=== PATIENT | female | born 1930 | race Caucasian/White ===

== ENCOUNTER 2016-07-10 21:31 | Inpatient (IN) | payer MEDICARE, OTHER ==
--- NOTE | ~2016-07-10 | DS ---
Discharge Summary [facility] [address] [place]. [address] NAME: LIAM JONES : 28 STATUS : DIS IN PAT#: [id number] AGE: 85 ADM/REG DATE : 07/11/16 MR#: [id number] REPORT SERV DATE: 07/19/16 DICTATED BY: HIWOT LEE DATE: 07/18/16 REPORT STATUS : Draft TRANSCRIBED BY: MODL DATE: 07/18/16 ADMISSION DATE: 07/11/2016 DISCHARGE DATE: 07/18/2016 HISTORY OF PRESENT ILLNESS: The patient is an 85-year-old female with a history of hypertension, diabetes type 2, CVA, who was brought to the emergency room from her [facility] with a complaint of sedation, altered mental status, and shortness of breath. For further details, please refer to H and P dictated by Dr. Keller on 07/11/2016. HOSPITAL COURSE: Upon presentation to the hospital, the patient met sepsis criteria. Was also noted to have toxic metabolic encephalopathy as well as urinary tract infection. The patient was subsequently admitted on the Hospitalist Service and started on broad-spectrum antibiotics. Blood culture was obtained, which came back positive for Staph haemolyticus in two bottles, at which time, the patient's antibiotics were deescalated to Unasyn. The patient has responded very well to antibiotic therapy, today is day eight of IV antibiotics. The patient currently has returned to baseline with resolution of her encephalopathy and significant improvement in her UTI. She no longer meets sepsis criteria and she is hemodynamically stable. Also during her hospitalization, the patient was noted to gurgle and cough with p.o. intake. The patient was briefly placed n.p.o. and a swallow evaluation was done, which was positive for aspiration. Per recommendation, the patient was started on clear liquid diet and then eventually transition to pureed diet, which the patient is tolerating. Her other medical problems, which include hypertension, diabetes type 2, and atrial fibrillation were all managed while the patient was in the hospital. Given resolution of her symptoms and given the patient has returned to baseline and hemodynamic stability, the patient will be discharged back to fci today. Plan has been discussed with the patient and her daughter, who is agreeable with this plan. DISCHARGE DIAGNOSES: 1. Sepsis. 2. Toxic metabolic encephalopathy. 3. Urinary tract infection. 4. Atrial fibrillation. 5. Diabetes type 2. 6. Hypertension. 7. History of CVA. DISCHARGE MEDICATIONS: 1. Amlodipine 10 mg p.o. daily. 2. Brimonidine 0.2% ophthalmic solution 15 mL dose one drop in both eyes twice daily. 3. Carvedilol 12.5 mg p.o. twice a day with holding parameters of systolic blood pressure less than 10 and pulse of less than 60. 4. Vitamin B12 at 1000 mcg IM q.30 days. 5. Vitamin D. 6. Cholecalciferol 400 units p.o. daily. Discharge Summary [facility] [address] [place]. [address] NAME: LIAM JONES : 28 STATUS : DIS IN PAT#: [id number] AGE: 85 ADM/REG DATE : 07/11/16 MR#: [id number] REPORT SERV DATE: 07/19/16 DICTATED BY: HIWOT LEE DATE: 07/18/16 REPORT STATUS : Draft TRANSCRIBED BY: NATHAN DATE: 07/18/16 7. Flonase nasal spray two sprays nasally at bedtime. 8. Lumigan eyedrops 0.01% ophthalmic drop in both eyes. 9. Losartan 50 mg p.o. twice a day. 10.Omeprazole 40 mg p.o. daily. 11.Simvastatin 20 mg p.o. daily. 12.Lamisil 1% cream applied topically daily. 13.Systane one drop ophthalmic four times a day in both eyes. 14.Effexor XR 150 mg p.o. daily. 15.Trazodone 100 mg p.o. at bedtime. 16.Symbicort two puff inhalation twice a day. 17.Metformin 500 mg p.o. with breakfast and supper. 18.Depakote 250 mg p.o. twice a day. 19.Hydrochlorothiazide 25 mg p.o. daily. 20.Atrovent one spray nasally at bedtime. 21.MiraLAX powder one pack p.o. daily. 22.Timolol one drop ophthalmic solution in both eyes. 23.Tramadol 50 mg p.o. at bedtime. IMAGIN. CT brain without contrast, impression, stable moderate generalized atrophy compared to the 07/2009 study. Acute right maxillary sinusitis. 2. CT abdomen without contrast, impression, no evidence of bowel obstruction correlate, although the pelvis was not included. 3. Diverticulosis with no evidence of diverticulitis as image level. 4. Irregular low density within the pancreas, which may represent duct dilatation or cyst formation. For further details, please refer to study from 07/11/2016. DISPOSITION: The patient will be discharged back to her [facility]. ACTIVITY: As tolerated. DIET: Pureed diet. Greater than 40 minutes were spent counseling, coordinating discharge, medication reconciliation, and dictation of note. CRISTI/NATHAN Hiwot Lee MD / [id number] Discharge Summary [address] [address] NAME: LIAM JONES : 29 STATUS : DIS IN PAT#: [id number] AGE: 85 ADM/REG DATE : 07/11/16 MR#: [id number] REPORT SERV DATE: 07/19/16 DICTATED BY: HIWOT LEE DATE: 07/18/16 REPORT STATUS : Draft TRANSCRIBED BY: NATHAN DATE: 07/18/16 CC: Hiwot Lee MD
--- NOTE | ~2016-07-10 | HP ---
History And Physical [facility] [address] [facility] [place]. [address] NAME: LIAM JONES : 28 STATUS : ADM IN PAT#: [id number] AGE: 85 ADM/REG DATE : 07/11/16 MR#: [id number] REPORT SERV DATE: 07/11/16 DICTATED BY: RAUL KHAN DATE: 07/11/16 REPORT STATUS : Draft TRANSCRIBED BY: MODL DATE: 07/11/16 DATE OF ADMISSION: 07/10/2016 POINT OF ENTRY: [facility] Emergency Department Primary care physician is Dr. Li at [facility]. CHIEF COMPLAINT: Sedation, lethargy, altered mental status, shortness of breath, and hypoxemia. HISTORY OF PRESENT ILLNESS: Ms Jones is an 85-year-old female with a history of hypertension, hyperlipidemia, kqq-dbvlfiz-tgarhmuwz diabetes mellitus type 2 as well as a prior history of cerebrovascular accident who was brought to the emergency room today by EMS for multiple complaints including not eating for the last few days, sedation, lethargy, shortness of breath, and hypoxemia. History is obtained from the patient's daughter who is at bedside. The family states for the past few months, they have noted a steady kind of decline in her cognitive function and inabilities and with occasional troubles with dysarthria in getting her words out. For the past few days, they have become concerned, as have medical staff at [facility] that she has stopped eating. She has become more confused and now sedated and lethargic. Is having intermittent episodes of nausea and vomiting and has been found clutching her lower abdomen. Per EMS report, staff at [facility] was also concerned that she was visibly short of breath and had low oxygen levels of unknown detail. Initial evaluation in the emergency department notable for temperature 98.1 degrees Fahrenheit, pulse is 111. Initial labs notable for a white count of 13,600. Potassium of 2.7. Urinalysis was positive for urinary tract infection. ABG was unremarkable. Chest x- ray was of poor technique. CT on the brain was negative for any acute issues. It was felt that the patient's presenting symptoms were likely due to UTI as well as dehydration and encephalopathy. She was subsequently admitted to the Hospital Service for further evaluation and management. Again review of systems unable to be obtained secondary to the patient's altered mental status. According to her daughter, she has not eaten for the past two days and has had nausea, vomiting, and lower quadrant abdominal pain as well as worsening sedation and lethargy. COMPREHENSIVE REVIEW OF SYSTEMS: Otherwise, negative unless listed in history of present illness. PREVIOUS MEDICAL HISTORY: 1. Hypertension. 2. Hyperlipidemia. 3. Bzz-jtuqhut-qqhzpuabo diabetes mellitus type 2. 4. History of recurrent urinary tract infection. History And Physical [address] [address] NAME: LIAM JONES : 28 STATUS : ADM IN PAT#: [id number] AGE: 85 ADM/REG DATE : 07/11/16 MR#: [id number] REPORT SERV DATE: 07/11/16 DICTATED BY: RAUL KHAN DATE: 07/11/16 REPORT STATUS : Draft TRANSCRIBED BY: NATHAN DATE: 07/11/16 5. Osteoarthritis. 6. Anxiety. 7. Depression. 8. Glaucoma. 9. History of recurrent falls. 10.History of recurrent hyponatremia. 11.History of prior cerebrovascular accident. 12.Obstructive sleep apnea, noncompliant with CPAP therapy. SURGICAL HISTORY: 1. Cataracts. 2. Bilateral shoulder. 3. Bilateral total knee. 4. Abdominal hysterectomy. ALLERGIES: CODONE AND EFFEXOR. HOME MEDICATIONS: Pending at the time of dictation. SOCIAL HISTORY: She is a former smoker, as well as alcoholic. Family currently denies either. Denies illicits. She has now been a long-term resident of [facility] for the past two years. FAMILY MEDICAL HISTORY: Unable to obtain secondary to the patient's altered mental status. LABS AND IMAGIN. White count 13.6, hemoglobin 11.3, hematocrit 35.3, platelet count is 394. INR 1.2. 2. Sodium is 142, potassium 2.7, chloride 97, carbon dioxide 37, BUN 23, creatinine 0.56, glucose is 190, calcium 9.1, protein 7.4, albumin is 1.8. Bilirubin is 0.3, ALT is 12, AST 17, alkaline phosphatase is 88. 3. Troponin less than 0.02. 4. Lactic acid 1.6. 5. Procalcitonin 0.21. 6. Urinalysis; spec gravity is 1.026, hazy with trace leukocyte esterase, positive nitrites, 22 white blood cells per high-powered field with 8 red blood cells. 7. ABG; pH is 7.54, pCO2 of 38, pO2 is 61, bicarbonate is 32, saturating 94% on 3 L of nasal cannula. 8. Chest x-ray per my review. She is rotated to the right with poor inspiration as well as poor penetration. I do not appreciate any gross infiltrate or consolidation. However, it is limited. 9. CT of the brain showed limited by the patient positioning. It shows atrophy and chronic ischemic changes. No acute intracranial abnormality. 10.EKG per my review shows sinus tachycardia with PVCs as well as some diffuse T-wave flattening with no evidence of any acute ischemia or infarction. PHYSICAL EXAMINATION: VITAL SIGNS: Temperature is again 99.1 degrees Fahrenheit, pulse is 111, respirations 18, History And Physical [address] [address] NAME: LIAM JONES : 29 STATUS : ADM IN [facility]#: [id number] AGE: 85 ADM/REG DATE : 07/11/16 MR#: [id number] REPORT SERV DATE: 07/11/16 DICTATED BY: RAUL KHAN DATE: 07/11/16 REPORT STATUS : Draft TRANSCRIBED BY: NATHAN DATE: 07/11/16 saturating 92% on 3 L by nasal cannula. On recheck, blood pressure is now 177/114, pulse is in the 110s teens to 120, saturating 90%. GENERAL: The patient is awake, alert, in no acute distress. Resting comfortably in bed. She is a chronically ill-appearing elderly female who is currently sedated and lethargic and is minimally responsive to my questions or examination. Family is at bedside. HEENT: Atraumatic and normocephalic. Very dry mucous membranes. Pupils, right pupil is chronically dilated, left pupil is equal and round and reactive. NECK: No JV distention. No carotid bruits. CARDIAC: Irregularly irregular rate and rhythm. No murmurs, rubs, or gallops. Normal S1 and S2. LUNGS: Difficult to assess as the patient was not cooperative with inspiration. I do not appreciate any areas of rhonchi, wheezes, or crackles. ABDOMEN: Mildly tender to palpation in bilateral lower quadrant. No rebound or guarding. EXTREMITIES: Warm and perfused. No cyanosis, clubbing, or edema. SKIN: Warm and dry. PSYCH: Sedated and lethargic. NEURO: Sedated and lethargic, not able to cooperate with neuro exam. She is moaning and groaning but speech was unable to be assessed nor was gait. ASSESSMENT: Ms Cerrato 85-year-old female, who appears to have some chronic cognitive and physical decline over the past few months. She is now brought to emergency room today with new reports of sedation, lethargy, not eating, nausea, vomiting, as well as hypoxemia, shortness of breath, found to have evidence of sepsis as well as urinary tract infection. PROBLEM LIST: 1. Acute pyelonephritis. 2. Sepsis. 3. Toxic metabolic encephalopathy. 4. Hypokalemia. 5. Hypoxemia. 6. Severe protein calorie malnutrition. 7. Hypertension. PLAN: 1. Acute pyelonephritis. The patient meets criteria with evidence of systemic toxicity as well as elevated white count. We will place the patient on IV cefepime. Follow up urine culture. 2. Sepsis. She meets criteria with tachycardia and white count. Lactic acid within normal limits. Procalcitonin was negative. Follow up urine and blood cultures. Continue IV fluids and antibiotics. 3. Hypokalemia. Aggressive repletion. She received 20 mEq here in the ER. We will order another 40 to be given. I will place the patient on potassium containing fluids as well as electrolyte repletion protocol. 4. Toxic metabolic encephalopathy. I suspect that the patient's sedation, lethargy is primarily due to her underlying sepsis and urinary tract infection as arterial blood gas was unremarkable except for some hypoxemia. CT scan was also negative for any acute issues. We will check thyroid function studies, B12, urine drug screen as well History And Physical [address] [address] NAME: LIAM JONES YAA : 28 STATUS : ADM IN [facility]#: [id number] AGE: 85 ADM/REG DATE : 07/11/16 MR#: [id number] REPORT SERV DATE: 07/11/16 DICTATED BY: RAUL KHAN DATE: 07/11/16 REPORT STATUS : Draft TRANSCRIBED BY: NATHAN DATE: 07/11/16 as ammonia level, and hold sedating medications. 5. Hypoxemia. Unclear etiology at this time as my exam and chest x-ray are both limited by lack of the patient cooperation. We will order a repeat chest x-ray in the morning to assess whether or not the patient has any underlying pneumonia that may be contributing to her hypoxemia. Place her on p.r.n. DuoNeb for which she will cooperate. 6. Severe protein calorie malnutrition. We will ask Nutrition to see the patient in the morning. 7. Deep venous thrombosis prophylaxis. Lovenox subcu. 8. Code status. Per extensive discussion with family, it appears that the patient would not want to be intubated or undergo CPR, however, they still would like remaining efforts to be attempted at this time. As such, we will put in limited code orders. SHIRIN/NATHAN Raul Khan MD / [id number]
[~2016-07-10 21:31] MED LIST: AMB10 PO; B121000P IM; BALACET 325 PO; BETIMOL0.25 % OP; BRIMONIDINE0.2 % OPH; BUSPAR10 PO; COMBIGAN0.2 MG/0.5 OP; CYANO1000T PO; DITRO5 PO; EFFEX75 PO; EFFEXOR XR150 MG PO; FLEX PO; FLONASE NAS; GLUCPH PO; KLONO1 PO; LOP25 PO; LORCET PO; LUMIGAN OPH; MYCOSCROI TOP; NORV10 PO; NOVOLOG SC; PRILOSEC40 MG PO; PRIN20 PO; REM15 PO; REST15 PO; TIMOLOL GEL0.5 % OP; TYLENOL ARTH650 MG PO; ULTRAM50 PO; VOLTAREN1 % TOP; ZESTORETIC PO; ZOCOR40 PO
[2016-07-10 22:13] LABS: CARBOXYHEMOGLOBIN 1.5 % (0-3); HCO3 (ACTUAL BICARBONATE) 32.1 MEQ/L (23-27); INSTRUMENT SERIAL # 8087; METHEMOGLOBIN 0.3 % (0-3); O2 CONTENT 15.6 VOL% (18-24); PCO2 (CO2 TENSION) 38 MMHG (35-45); PO2 (O2 TENSION) 67 MMHG (79-93); SAMPLE Arterial; pH 7.54 (7.37-7.43)
[2016-07-10 22:29] LABS: BASOPHILS 0.2 %; BASOPHILS ABSOLUTE 0.03 10/3/uL (0.0-0.16); EOSINOPHILS 0 %; ER CBC TAT 0 Hrs 08 Mins; HEMATOCRIT 35.3 % (36.0-48.0); HEMOGLOBIN 11.3 g/dL (12.0-16.0); IMMATURE GRANULOCYTES 4.5 %; IMMATURE GRANULOCYTES ABSOLUTE 0.61 10/3/uL (0.0-0.11); LYMPHOCYTES 9.7 %; LYMPHOCYTES ABSOLUTE 1.32 10/3/uL (0.67-4.30); MANUAL DIFF NO %; MEAN CORPUSCULAR HEMOGLOB 27.1 pg (26.0-34.0); MEAN CORPUSCULAR VOLUME 84.7 fL (80-100); MEAN PLATELET VOLUME 9.5 fL (9.2-13.0); MONOCYTES 7.8 %; MONOCYTES ABSOLUTE 1.06 10/3/uL (0.21-1.20); NEUTROPHILS 77.8 %; PLATELET COUNT 394 10/3/uL (150-400); RBC DISTRIBUTION WIDTH 16.2 % (12.0-16.0); RED CELL COUNT 4.17 10/6/uL (4.0-5.6); WHITE BLOOD CELLS 13.6 10/3/uL (4.5-10.5)
[2016-07-10 22:36] LABS: INTERNATIONAL NORMAL RATI 1.2 UNITS (-); PARTIAL THROMBO TIME 33.7 SEC (22.5-37.2); PROTIME (NOT ORD) 14.6 SEC (12.0-14.5)
[2016-07-10 22:47] LABS: CALCIUM, SERUM 9.1 MG/DL (8.5-10.4); CHLORIDE, SERUM 97 MMOL/L (96-112); CREATININE 0.56 MG/DL (0.55-1.02); GFR AFRICAN AMERICAN 98 ML/MIN (>=60); GFR NON AFRICAN AMERICAN 84 ML/MIN (>=60); SGOT(AST) 17 U/L (5-40); SGPT(ALT) 12 U/L (5-65); TOTAL BILIRUBIN 0.3 MG/DL (0-1.2); TOTAL PROTEIN 7.4 G/DL (6.0-8.5); TROPONIN I <0.02 NG/ML (<0.05)
[2016-07-10 22:48] LABS: A/G RATIO 0.3 (0.7-1.9); ALBUMIN 1.8 G/DL (3.5-5.0); ALKALINE PHOSPHATASE 88 U/L (45-117); BAND NEUTROPHILS 24 %; BUN (BLOOD UREA NITROGEN) 23 MG/DL (6-23); CO2 (CARBON DIOXIDE) 37 MMOL/L (24-34); ER DIFF TAT 0 Hrs 27 Mins; GLOBULIN 5.6 G/DL (2.5-4.1); GLUCOSE, SERUM 190 MG/DL (60-99); IMMATURE GRANS ABSOLUTE (CALC) 0.27 10/3/uL (0.0-0.11); LYMPHOCYTES 7 %; LYMPHOCYTES ABSOLUTE (CALC) 0.95 10/3/uL (0.67-4.30); METAMYELOCYTES 2 %; MONOCYTES 3 %; MONOCYTES ABSOLUTE (CALC) 0.41 10/3/uL (0.21-1.20); NEUTROPHILS ABSOLUTE (CALC) 11.97 10/3/uL (2.02-8.40); PLATELET ESTIMATE ADQ (ADEQUATE); POTASSIUM, SERUM 2.7 MMOL/L (3.5-5.3); SEGMENTED NEUTROPHIL (0) 64 %; SODIUM, SERUM 142 MMOL/L (135-148); TOTAL NUCLEATED CELLS 100
[2016-07-10 22:48] LABS: ASCORBIC ACID (UR NOT ORDER) NEG (NEG); BILIRUBIN, URINE NEGATIVE (NEG); ER URINALYSIS TAT 0 Hrs 09 Mins; KETONE, URINE 20 MG/DL (NEG); LEUKOCYTE ESTERASE(NOT OR TRACE (NEG); NITRITE (URINE) POS (NEG); WBC (NOT ORDERED) (RFLEX) 22 (0-5)
[2016-07-10 23:35] LABS: LACTATE 1.6 MMOL/L (0.3-2.4)
[2016-07-11 00:29] LABS: PROCALCITONIN 0.21 ng/mL (<0.5)
[2016-07-11] MEDS ORDERED: NORV10 PO (02:33)
[2016-07-11] MEDS ORDERED: BRIMONIDINE0.2 % OPH (02:34)
[2016-07-11] MEDS ORDERED: COREG3 PO (02:34)
[2016-07-11] MEDS ORDERED: B121000P IM (02:35)
[2016-07-11] MEDS ORDERED: DEPAKOTE 125 M125 MG PO (02:36)
[2016-07-11] MEDS ORDERED: FLONASE NAS (02:37)
[2016-07-11] MEDS ORDERED: HYDROCHLOROT25 MG PO (02:37)
[2016-07-11] MEDS ORDERED: ATRONASAL6 NAS (02:38)
[2016-07-11] MEDS ORDERED: COZ50 PO (02:39)
[2016-07-11] MEDS ORDERED: LUMIGAN2.5 ML OPH (02:40)
[2016-07-11] MEDS ORDERED: GLUCPH PO (02:41)
[2016-07-11] MEDS ORDERED: PRILO PO (02:42)
[2016-07-11] MEDS ORDERED: MIRALAX POWDER1 PKT PO (02:43)
[2016-07-11] MEDS ORDERED: ZOCOR20 PO ×2 (02:44)
[2016-07-11] MEDS ORDERED: SYMBICORT 80/4.1 INH INH (02:45)
[2016-07-11] MEDS ORDERED: SYSTAN1 OPH ×2 (02:46→02:47)
[2016-07-11] MEDS ORDERED: LAMIS15 TOP (02:48)
[2016-07-11] MEDS ORDERED: TIMOLOL GEL0.5 % OPH (02:49)
[2016-07-11] MEDS ORDERED: ULTRAM50 PO (02:49)
[2016-07-11] MEDS ORDERED: EFFEXOR XR150 MG PO (02:50)
[2016-07-11] MEDS ORDERED: TRAZ100 PO (02:50)
[2016-07-11] MEDS ORDERED: VITAMIN D400 UNI1 PO (02:51)
[2016-07-11] MEDS ORDERED: BISR PR (02:51)
[2016-07-11] MEDS ORDERED: DUONEB INH (02:52)
[2016-07-11] MEDS ORDERED: MOMUD (02:53)
[2016-07-11] MEDS ORDERED: ROBITUSS23 PO (02:53)
[2016-07-11] MEDS ORDERED: SILTUSSIN100 MG/5 M PO (02:54)
[2016-07-11] MEDS ORDERED: SYSTANE OPH (02:57)
[2016-07-11] MEDS ORDERED: HYZAAR 50/12.51 TAB PO (03:00)
[2016-07-11 06:29] LABS: FREE T4 1.6 NG/DL (0.76-1.46)
[2016-07-11 06:35] LABS: FOLATE 15.2 NG/ML (>5.2); ULTRASENSITIVE TSH 0.759 MCIU/ML (0.358-3.740)
[2016-07-11 08:07] LABS: AMPHETAMINES (NOT ORD) NEG (NEG); BARBITURATES (NOT ORDERED NEG (NEG); BENZODIAZEPINES (NOT ORD) NEG (NEG); CANNABINOIDS (THC) NEG (NEG); COCAINE (NOT ORDERED) NEG (NEG); OPIATES NEG (NEG); PHENCYCLIDINE(PCP) NEG (NEG); TRICYCLICS NEG (NEG)
[2016-07-11 13:14] LABS: HEMOGLOBIN 9.9 g/dL (12.0-16.0); MEAN CORPUS HGB CONC 31.7 g/dL (32.0-36.0); MEAN CORPUSCULAR HEMOGLOB 27.1 pg (26.0-34.0); MEAN CORPUSCULAR VOLUME 85.5 fL (80-100); MEAN PLATELET VOLUME 9.1 fL (9.2-13.0); PLATELET COUNT 354 10/3/uL (150-400); RBC DISTRIBUTION WIDTH 16.4 % (12.0-16.0); RED CELL COUNT 3.65 10/6/uL (4.0-5.6); WHITE BLOOD CELLS 10.1 10/3/uL (4.5-10.5)
[2016-07-11 13:15] LABS: HEMATOCRIT 31.2 % (36.0-48.0); MANUAL DIFF YES %
[2016-07-11 13:36] LABS: BAND NEUTROPHILS 5 %; LYMPHOCYTES 12 %; LYMPHOCYTES ABSOLUTE (CALC) 1.21 10/3/uL (0.67-4.30); METAMYELOCYTES 3 %; MONOCYTES 5 %; MONOCYTES ABSOLUTE (CALC) 0.51 10/3/uL (0.21-1.20); NEUTROPHILS ABSOLUTE (CALC) 8.08 10/3/uL (2.02-8.40); PLATELET ESTIMATE ADQ (ADEQUATE); SEGMENTED NEUTROPHIL (0) 75 %; TOTAL NUCLEATED CELLS 100; TOXIC GRANULATION 1+; VACUOLATED NEUTROPHILES OCC
[2016-07-11 13:37] LABS: POLYCHROMASIA 1+ (2-5/OIF) (0-1/OIF)
[2016-07-12 06:40] LABS: HEMATOCRIT 33.4 % (36.0-48.0); HEMOGLOBIN 10.7 g/dL (12.0-16.0); MEAN CORPUSCULAR HEMOGLOB 27.4 pg (26.0-34.0); MEAN CORPUSCULAR VOLUME 85.6 fL (80-100); MEAN PLATELET VOLUME 8.9 fL (9.2-13.0); PLATELET COUNT 371 10/3/uL (150-400); RBC DISTRIBUTION WIDTH 16.5 % (12.0-16.0); WHITE BLOOD CELLS 12.9 10/3/uL (4.5-10.5)
[2016-07-12 06:43] LABS: MANUAL DIFF YES %
[2016-07-12 07:03] LABS: BUN (BLOOD UREA NITROGEN) 11 MG/DL (6-23); CALCIUM, SERUM 8.7 MG/DL (8.5-10.4); CHLORIDE, SERUM 104 MMOL/L (96-112); CO2 (CARBON DIOXIDE) 27 MMOL/L (24-34); CREATININE 0.43 MG/DL (0.55-1.02); GFR AFRICAN AMERICAN 107 ML/MIN (>=60); GFR NON AFRICAN AMERICAN 92 ML/MIN (>=60); GLUCOSE, SERUM 188 MG/DL (60-99); PHOSPHORUS, SERUM 1.5 MG/DL (2.5-4.5); POTASSIUM, SERUM 3.5 MMOL/L (3.5-5.3); SODIUM, SERUM 140 MMOL/L (135-148)
[2016-07-12 07:06] LABS: BAND NEUTROPHILS 11 %; IMMATURE GRANS ABSOLUTE (CALC) 0.65 10/3/uL (0.0-0.11); LYMPHOCYTES 8 %; LYMPHOCYTES ABSOLUTE (CALC) 1.03 10/3/uL (0.67-4.30); METAMYELOCYTES 3 %; MONOCYTES 4 %; MONOCYTES ABSOLUTE (CALC) 0.52 10/3/uL (0.21-1.20); MYELOCYTES 2 %; NEUTROPHILS ABSOLUTE (CALC) 10.71 10/3/uL (2.02-8.40); NUCLEATED RED BLOOD CELLS 1 /100WBC (0); PLATELET ESTIMATE ADQ (ADEQUATE); SEGMENTED NEUTROPHIL (0) 72 %; TOTAL NUCLEATED CELLS 100
[2016-07-12 07:07] LABS: TOXIC GRANULATION 1+
[2016-07-12] MEDS ORDERED: NORV10 PO (12:48)
[2016-07-12] MEDS ORDERED: DEPASPRINK PO (12:49)
[2016-07-12] MEDS ORDERED: COREG3 PO (12:49)
[2016-07-12] MEDS ORDERED: B121000P IM (12:49)
[2016-07-12] MEDS ORDERED: BRIMONIDINE0.2 % OPH (12:49)
[2016-07-12] MEDS ORDERED: COZ50 PO (12:50)
[2016-07-12] MEDS ORDERED: FLONASE NAS (12:50)
[2016-07-12] MEDS ORDERED: HYDROCHLOROT25 MG PO (12:50)
[2016-07-12] MEDS ORDERED: ATRONASAL6 NAS (12:50)
[2016-07-12] MEDS ORDERED: LUMIGAN2.5 ML OPH (12:51)
[2016-07-12] MEDS ORDERED: GLUCPH PO (12:51)
[2016-07-12] MEDS ORDERED: PRILOSEC40 MG PO (12:51)
[2016-07-12] MEDS ORDERED: ZOCOR20 PO (12:52)
[2016-07-12] MEDS ORDERED: MIRALAX POWDER1 PKT PO (12:52)
[2016-07-12] MEDS ORDERED: SYMBICORT 80/4.1 INH INH (12:52)
[2016-07-12] MEDS ORDERED: SYSTANE OPH (12:53)
[2016-07-12] MEDS ORDERED: SYSTAN1 OPH (12:53)
[2016-07-12] MEDS ORDERED: LAMIS15 TOP (12:54)
[2016-07-12] MEDS ORDERED: VITAMIN D400 UNI1 PO (12:55)
[2016-07-12] MEDS ORDERED: TRAZ100 PO (12:55)
[2016-07-12] MEDS ORDERED: ULTRAM50 PO (12:55)
[2016-07-12] MEDS ORDERED: EFFEXOR XR150 MG PO (12:55)
[2016-07-12] MEDS ORDERED: TIMOLOL MAL0.5 % OPH (12:55)
[2016-07-12] MEDS ORDERED: ZOFRAN4 PO (12:56)
[2016-07-12] MEDS ORDERED: DUONEB INH (12:56)
[2016-07-12] MEDS ORDERED: SILTUSSIN100 MG/5 M PO (12:57)
[2016-07-12 21:02] LABS: PHOSPHORUS, SERUM 3.3 MG/DL (2.5-4.5); POTASSIUM, SERUM 3.9 MMOL/L (3.5-5.3)
[2016-07-13 06:20] LABS: HEMOGLOBIN 11.1 g/dL (12.0-16.0); MANUAL DIFF YES %; MEAN CORPUS HGB CONC 31.7 g/dL (32.0-36.0); MEAN CORPUSCULAR HEMOGLOB 27.2 pg (26.0-34.0); MEAN CORPUSCULAR VOLUME 85.8 fL (80-100); PLATELET COUNT 418 10/3/uL (150-400); RBC DISTRIBUTION WIDTH 16.7 % (12.0-16.0); RED CELL COUNT 4.08 10/6/uL (4.0-5.6); WHITE BLOOD CELLS 11.4 10/3/uL (4.5-10.5)
[2016-07-13 06:34] LABS: A/G RATIO 0.4 (0.7-1.9); ALBUMIN 1.8 G/DL (3.5-5.0); BUN (BLOOD UREA NITROGEN) 11 MG/DL (6-23); CALCIUM, SERUM 8.2 MG/DL (8.5-10.4); CHLORIDE, SERUM 104 MMOL/L (96-112); CREATININE 0.41 MG/DL (0.55-1.02); GFR AFRICAN AMERICAN 108 ML/MIN (>=60); GFR NON AFRICAN AMERICAN 94 ML/MIN (>=60); GLOBULIN 4.8 G/DL (2.5-4.1); GLUCOSE, SERUM 168 MG/DL (60-99); POTASSIUM, SERUM 3.9 MMOL/L (3.5-5.3); SGOT(AST) 14 U/L (5-40); SGPT(ALT) 12 U/L (5-65); SODIUM, SERUM 138 MMOL/L (135-148); TOTAL BILIRUBIN 0.4 MG/DL (0-1.2); TOTAL PROTEIN 6.6 G/DL (6.0-8.5)
[2016-07-13 06:36] LABS: ALKALINE PHOSPHATASE 66 U/L (45-117); CO2 (CARBON DIOXIDE) 22 MMOL/L (24-34)
[2016-07-13 06:47] LABS: BAND NEUTROPHILS 7 %; IMMATURE GRANS ABSOLUTE (CALC) 0.34 10/3/uL (0.0-0.11); LYMPHOCYTES 13 %; LYMPHOCYTES ABSOLUTE (CALC) 1.48 10/3/uL (0.67-4.30); METAMYELOCYTES 3 %; MONOCYTES 3 %; MONOCYTES ABSOLUTE (CALC) 0.34 10/3/uL (0.21-1.20); NEUTROPHILS ABSOLUTE (CALC) 9.23 10/3/uL (2.02-8.40); PLATELET ESTIMATE SLT INC (ADEQUATE); SEGMENTED NEUTROPHIL (0) 74 %; TOTAL NUCLEATED CELLS 100
[2016-07-14 06:02] LABS: A/G RATIO 0.4 (0.7-1.9); ALKALINE PHOSPHATASE 72 U/L (45-117); BUN (BLOOD UREA NITROGEN) 11 MG/DL (6-23); CALCIUM, SERUM 8.1 MG/DL (8.5-10.4); CHLORIDE, SERUM 101 MMOL/L (96-112); CO2 (CARBON DIOXIDE) 19 MMOL/L (24-34); CREATININE 0.43 MG/DL (0.55-1.02); GFR AFRICAN AMERICAN 107 ML/MIN (>=60); GFR NON AFRICAN AMERICAN 92 ML/MIN (>=60); GLOBULIN 4.6 G/DL (2.5-4.1); GLUCOSE, SERUM 167 MG/DL (60-99); SGOT(AST) 13 U/L (5-40); SGPT(ALT) 10 U/L (5-65); SODIUM, SERUM 134 MMOL/L (135-148); TOTAL BILIRUBIN 0.4 MG/DL (0-1.2); TOTAL PROTEIN 6.6 G/DL (6.0-8.5)
[2016-07-14 06:50] LABS: HEMATOCRIT 36.5 % (36.0-48.0); HEMOGLOBIN 11.9 g/dL (12.0-16.0); MEAN CORPUS HGB CONC 32.6 g/dL (32.0-36.0); MEAN CORPUSCULAR HEMOGLOB 27.4 pg (26.0-34.0); MEAN CORPUSCULAR VOLUME 83.9 fL (80-100); MEAN PLATELET VOLUME 9.2 fL (9.2-13.0); NUCLEATED RED BLOOD CELLS 0.4 /100WBC (0-0); PLATELET COUNT 502 10/3/uL (150-400); RBC DISTRIBUTION WIDTH 16.4 % (12.0-16.0); RED CELL COUNT 4.35 10/6/uL (4.0-5.6); WHITE BLOOD CELLS 13.6 10/3/uL (4.5-10.5)
[2016-07-14 06:55] LABS: MANUAL DIFF YES %
[2016-07-14 08:37] LABS: BAND NEUTROPHILS 9 %; EOSINOPHILS 2 %; EOSINOPHILS ABSOLUTE (CALC) 0.27 10/3/uL (0.0-0.53); IMMATURE GRANS ABSOLUTE (CALC) 0.54 10/3/uL (0.0-0.11); LYMPHOCYTES 9 %; LYMPHOCYTES ABSOLUTE (CALC) 1.22 10/3/uL (0.67-4.30); METAMYELOCYTES 3 %; MONOCYTES 6 %; MONOCYTES ABSOLUTE (CALC) 0.82 10/3/uL (0.21-1.20); MYELOCYTES 1 %; NEUTROPHILS ABSOLUTE (CALC) 10.74 10/3/uL (2.02-8.40); PLATELET ESTIMATE ADQ (ADEQUATE); RBC MORPHOLOGY NORM (NORMAL); SEGMENTED NEUTROPHIL (0) 70 %; TOTAL NUCLEATED CELLS 100
[2016-07-15 05:07] LABS: HEMATOCRIT 34.7 % (36.0-48.0); HEMOGLOBIN 11.3 g/dL (12.0-16.0); MEAN CORPUS HGB CONC 32.6 g/dL (32.0-36.0); MEAN CORPUSCULAR HEMOGLOB 27.3 pg (26.0-34.0); MEAN CORPUSCULAR VOLUME 83.8 fL (80-100); MEAN PLATELET VOLUME 8.7 fL (9.2-13.0); PLATELET COUNT 506 10/3/uL (150-400); RBC DISTRIBUTION WIDTH 16.3 % (12.0-16.0); RED CELL COUNT 4.14 10/6/uL (4.0-5.6); WHITE BLOOD CELLS 13.1 10/3/uL (4.5-10.5)
[2016-07-15 05:19] LABS: MANUAL DIFF YES %
[2016-07-15 05:23] LABS: A/G RATIO 0.4 (0.7-1.9); ALBUMIN 1.9 G/DL (3.5-5.0); ALKALINE PHOSPHATASE 69 U/L (45-117); BUN (BLOOD UREA NITROGEN) 8 MG/DL (6-23); CALCIUM, SERUM 8.2 MG/DL (8.5-10.4); CHLORIDE, SERUM 101 MMOL/L (96-112); CREATININE 0.46 MG/DL (0.55-1.02); GFR AFRICAN AMERICAN 104 ML/MIN (>=60); GFR NON AFRICAN AMERICAN 90 ML/MIN (>=60); GLUCOSE, SERUM 154 MG/DL (60-99); SGOT(AST) 12 U/L (5-40); SGPT(ALT) 9 U/L (5-65); SODIUM, SERUM 136 MMOL/L (135-148); TOTAL BILIRUBIN 0.3 MG/DL (0-1.2); TOTAL PROTEIN 6.9 G/DL (6.0-8.5)
[2016-07-15 05:39] LABS: CO2 (CARBON DIOXIDE) 24 MMOL/L (24-34); POTASSIUM, SERUM 3.6 MMOL/L (3.5-5.3)
[2016-07-15 06:14] LABS: BASOPHILS 0.3 %; BASOPHILS ABSOLUTE 0.04 10/3/uL (0.0-0.16); EOSINOPHILS ABSOLUTE 0.39 10/3/uL (0.0-0.53); IMMATURE GRANULOCYTES 3.8 %; IMMATURE GRANULOCYTES ABSOLUTE 0.49 10/3/uL (0.0-0.11); LYMPHOCYTES 12.4 %; LYMPHOCYTES ABSOLUTE 1.62 10/3/uL (0.67-4.30); MONOCYTES 5.7 %; MONOCYTES ABSOLUTE 0.74 10/3/uL (0.21-1.20); NEUTROPHILS 74.8 %; NEUTROPHILS ABSOLUTE 9.77 10/3/uL (2.02-8.40)
[2016-07-15 06:19] LABS: ANISOCYTOSIS 1+ (5-10/OIF) (0-5/OIF); BAND NEUTROPHILS 2 %; EOSINOPHILS 1 %; EOSINOPHILS ABSOLUTE (CALC) 0.13 10/3/uL (0.0-0.53); IMMATURE GRANS ABSOLUTE (CALC) 0.79 10/3/uL (0.0-0.11); LYMPHOCYTES 12 %; LYMPHOCYTES ABSOLUTE (CALC) 1.57 10/3/uL (0.67-4.30); METAMYELOCYTES 3 %; MONOCYTES 4 %; MONOCYTES ABSOLUTE (CALC) 0.52 10/3/uL (0.21-1.20); MYELOCYTES 3 %; NEUTROPHILS ABSOLUTE (CALC) 10.09 10/3/uL (2.02-8.40); PLATELET ESTIMATE SLT INC (ADEQUATE); RBC MORPHOLOGY ABN (NORMAL); SEGMENTED NEUTROPHIL (0) 75 %; TOTAL NUCLEATED CELLS 100
[2016-07-16 05:08] LABS: HEMATOCRIT 33.2 % (36.0-48.0); HEMOGLOBIN 10.8 g/dL (12.0-16.0); MANUAL DIFF YES %; MEAN CORPUS HGB CONC 32.5 g/dL (32.0-36.0); MEAN CORPUSCULAR HEMOGLOB 27.5 pg (26.0-34.0); MEAN CORPUSCULAR VOLUME 84.5 fL (80-100); MEAN PLATELET VOLUME 8.6 fL (9.2-13.0); PLATELET COUNT 467 10/3/uL (150-400); RBC DISTRIBUTION WIDTH 16.3 % (12.0-16.0); RED CELL COUNT 3.93 10/6/uL (4.0-5.6); WHITE BLOOD CELLS 11.1 10/3/uL (4.5-10.5)
[2016-07-16 05:26] LABS: A/G RATIO 0.4 (0.7-1.9); ALKALINE PHOSPHATASE 68 U/L (45-117); CALCIUM, SERUM 7.9 MG/DL (8.5-10.4); CHLORIDE, SERUM 104 MMOL/L (96-112); CO2 (CARBON DIOXIDE) 26 MMOL/L (24-34); CREATININE 0.42 MG/DL (0.55-1.02); GFR AFRICAN AMERICAN 108 ML/MIN (>=60); GFR NON AFRICAN AMERICAN 93 ML/MIN (>=60); GLOBULIN 4.5 G/DL (2.5-4.1); GLUCOSE, SERUM 156 MG/DL (60-99); POTASSIUM, SERUM 3.6 MMOL/L (3.5-5.3); SGOT(AST) 12 U/L (5-40); SGPT(ALT) 10 U/L (5-65); SODIUM, SERUM 139 MMOL/L (135-148); TOTAL BILIRUBIN 0.3 MG/DL (0-1.2); TOTAL PROTEIN 6.5 G/DL (6.0-8.5)
[2016-07-16 05:27] LABS: BAND NEUTROPHILS 3 %; EOSINOPHILS 4 %; EOSINOPHILS ABSOLUTE (CALC) 0.44 10/3/uL (0.0-0.53); LYMPHOCYTES 4 %; LYMPHOCYTES ABSOLUTE (CALC) 0.44 10/3/uL (0.67-4.30); MONOCYTES 8 %; MONOCYTES ABSOLUTE (CALC) 0.89 10/3/uL (0.21-1.20); NEUTROPHILS ABSOLUTE (CALC) 9.32 10/3/uL (2.02-8.40); PLATELET ESTIMATE INC (ADEQUATE); SEGMENTED NEUTROPHIL (0) 81 %; TOTAL NUCLEATED CELLS 100
[2016-07-16 05:28] LABS: BUN (BLOOD UREA NITROGEN) 3 MG/DL (6-23)
[2016-07-16 05:31] LABS: POLYCHROMASIA 1+ (2-5/OIF) (0-1/OIF)
[2016-07-17 07:08] LABS: BASOPHILS 0.1 %; BASOPHILS ABSOLUTE 0.01 10/3/uL (0.0-0.16); EOSINOPHILS 3.4 %; EOSINOPHILS ABSOLUTE 0.34 10/3/uL (0.0-0.53); HEMATOCRIT 32.5 % (36.0-48.0); HEMOGLOBIN 10.5 g/dL (12.0-16.0); LYMPHOCYTES 15.3 %; LYMPHOCYTES ABSOLUTE 1.51 10/3/uL (0.67-4.30); MEAN CORPUS HGB CONC 32.3 g/dL (32.0-36.0); MEAN CORPUSCULAR HEMOGLOB 27.1 pg (26.0-34.0); MEAN PLATELET VOLUME 8.6 fL (9.2-13.0); MONOCYTES ABSOLUTE 0.69 10/3/uL (0.21-1.20); NEUTROPHILS 73.2 %; NEUTROPHILS ABSOLUTE 7.22 10/3/uL (2.02-8.40); PLATELET COUNT 504 10/3/uL (150-400); RBC DISTRIBUTION WIDTH 16.7 % (12.0-16.0); RED CELL COUNT 3.87 10/6/uL (4.0-5.6); WHITE BLOOD CELLS 9.9 10/3/uL (4.5-10.5)
[2016-07-17 07:10] LABS: MANUAL DIFF NO %
[2016-07-17 07:20] LABS: A/G RATIO 0.5 (0.7-1.9); ALKALINE PHOSPHATASE 67 U/L (45-117); BUN (BLOOD UREA NITROGEN) 3 MG/DL (6-23); CHLORIDE, SERUM 103 MMOL/L (96-112); CO2 (CARBON DIOXIDE) 26 MMOL/L (24-34); CREATININE 0.44 MG/DL (0.55-1.02); GFR AFRICAN AMERICAN 106 ML/MIN (>=60); GFR NON AFRICAN AMERICAN 91 ML/MIN (>=60); GLOBULIN 4.4 G/DL (2.5-4.1); GLUCOSE, SERUM 153 MG/DL (60-99); POTASSIUM, SERUM 3.6 MMOL/L (3.5-5.3); SGOT(AST) 11 U/L (5-40); SGPT(ALT) 8 U/L (5-65); SODIUM, SERUM 137 MMOL/L (135-148); TOTAL BILIRUBIN 0.3 MG/DL (0-1.2); TOTAL PROTEIN 6.4 G/DL (6.0-8.5)
[2016-07-18 06:34] LABS: BASOPHILS 0.2 %; BASOPHILS ABSOLUTE 0.02 10/3/uL (0.0-0.16); EOSINOPHILS 2.8 %; EOSINOPHILS ABSOLUTE 0.24 10/3/uL (0.0-0.53); HEMATOCRIT 32.4 % (36.0-48.0); HEMOGLOBIN 10.4 g/dL (12.0-16.0); IMMATURE GRANULOCYTES 0.7 %; IMMATURE GRANULOCYTES ABSOLUTE 0.06 10/3/uL (0.0-0.11); LYMPHOCYTES 15.7 %; LYMPHOCYTES ABSOLUTE 1.37 10/3/uL (0.67-4.30); MANUAL DIFF NO %; MEAN CORPUS HGB CONC 32.1 g/dL (32.0-36.0); MEAN CORPUSCULAR HEMOGLOB 27.7 pg (26.0-34.0); MEAN CORPUSCULAR VOLUME 86.2 fL (80-100); MEAN PLATELET VOLUME 8.5 fL (9.2-13.0); MONOCYTES 9.9 %; MONOCYTES ABSOLUTE 0.86 10/3/uL (0.21-1.20); NEUTROPHILS 70.7 %; NEUTROPHILS ABSOLUTE 6.15 10/3/uL (2.02-8.40); PLATELET COUNT 518 10/3/uL (150-400); RED CELL COUNT 3.76 10/6/uL (4.0-5.6); WHITE BLOOD CELLS 8.7 10/3/uL (4.5-10.5)
[2016-07-18 06:49] LABS: A/G RATIO 0.5 (0.7-1.9); ALKALINE PHOSPHATASE 66 U/L (45-117); BUN (BLOOD UREA NITROGEN) 2 MG/DL (6-23); CALCIUM, SERUM 8.1 MG/DL (8.5-10.4); CHLORIDE, SERUM 106 MMOL/L (96-112); CO2 (CARBON DIOXIDE) 27 MMOL/L (24-34); CREATININE 0.42 MG/DL (0.55-1.02); GFR AFRICAN AMERICAN 108 ML/MIN (>=60); GFR NON AFRICAN AMERICAN 93 ML/MIN (>=60); GLOBULIN 4.2 G/DL (2.5-4.1); GLUCOSE, SERUM 156 MG/DL (60-99); POTASSIUM, SERUM 3.9 MMOL/L (3.5-5.3); SGOT(AST) 11 U/L (5-40); SGPT(ALT) 8 U/L (5-65); SODIUM, SERUM 140 MMOL/L (135-148); TOTAL BILIRUBIN 0.2 MG/DL (0-1.2); TOTAL PROTEIN 6.2 G/DL (6.0-8.5)
== END 2016-07-18 12:24 | DRG 871 ==
LOC: ER 21:31 → 7NO 07-11 01:53
PROVIDERS: Emergency Medicine; Hospitalist; Internal Medicine; Nurse Practitioner Family
DX: A41.1 Sepsis due to other specified staphylococcus (principal); G92 Toxic encephalopathy; E43 Unspecified severe protein-calorie malnutrition; N39.0 Urinary tract infection, site not specified; E11.9 Type 2 diabetes mellitus without complications; I48.91 Unspecified atrial fibrillation; E86.0 Dehydration; E87.6 Hypokalemia; I10 Essential (primary) hypertension; Z86.73 Personal history of transient ischemic attack (TIA), and cerebral infarction without residual deficits; Z79.84 Long term (current) use of oral hypoglycemic drugs; Z91.81 History of falling; Z87.440 Personal history of urinary (tract) infections; F32.9 Major depressive disorder, single episode, unspecified; F41.9 Anxiety disorder, unspecified; H40.9 Unspecified glaucoma; Z96.612 Presence of left artificial shoulder joint; Z96.611 Presence of right artificial shoulder joint; Z96.653 Presence of artificial knee joint, bilateral
CPT/HCPCS: 36600; 70450; 71010; 74000; 74150; 80048; 80053; 80202; 80305; 81001; 82140; 82150; 82570; 82607; 82746; 82805; 82962; 83605; 83690; 83735; 83880; 83935; 84100; 84132; 84145; 84300; 84439; 84443; 84484; 85025; 85610; 85730; 87040; 87077; 87086; 87186; 92610-GN; 93005; 94640; 96374; 96375; 99285; A9270-GY; G8996-CK-GN; G8996-CN-GN; G8997-CK-GN; G8997-CN-GN; G8998-CK-GN; G8998-CN-GN; J0295; J0360; J0692; J3370